=== PATIENT | male | born 1980 | race American Indian/Alaskan Native ===

== ENCOUNTER 2019-10-06 01:07 | Emergency (ER) | payer BC, OTHER ==
[~2019-10-06] VITALS: Ht 180.3 cm; Wt 133.9 kg
--- OUTSIDE RECORDS SUMMARY | ~2019-10-06 | XMS | Encounter Summary ---
Demographics + + + | Address | [address] | | | [place] [address] | + + + | Home Phone | | + + + | Preferred Language | Unknown | + + + | Marital Status | Single | + + + | Druze Affiliation | Unknown | + + + | Race | Unknown | + + + | Ethnic Group | Unknown | + + + Author + + + | Author | [facility] | | | and [place] | + + + | Organization | [facility] | | | and [place] | + + + | Address | Unknown | + + + | Phone | Unavailable | + + + Support + + + + + | Name | Relationship | Address | Phone | + + + + + | Rolf Casas | ECON | [address] | | | | | [place], [place] | | | | | [address] | | + + + + + | Celio Case | ECON | [address] | | | | | [place] | | | | | [address] | | + + + + + Care Team Providers + +------+ + | Care Turn Supervisor Name | Role | Phone | + +------+ + | Trinity Lofton MD | PCP | | + +------+ + Reason for Visit + + + | Reason | Comments | + + + | Wrist Pain | Right wrist pain x 5 months. Presents for EMG. | + + + Encounter Details +--------+ + + + + | Date | Type | Department | Care Team | Description | +--------+ + + + + | 08/04/ | Procedure | [facility] | Joe Reyna MD [address] | CTS (carpal tunnel | | 2013 | visit | [facility] [place] | [facility] [address] | syndrome) (Primary | | | | [address], | [address] [place], | Dx) | | | | [place] [address] [facility] | [place] [address] | | | | | [place] [address] | [phone] | | | | | [phone] | | | +--------+ + + + + Social History + +-------+ +--------+------+ | Tobacco Use | Types | Packs/Day | Years | Date | | | | | Used | | + +-------+ +--------+------+ | Never Smoker | | | | | + +-------+ +--------+------+ + +---+---+ + | Smokeless Tobacco: | | | Quit: | | Former User | | | 05/31/19 | | | | | 09 | + +---+---+ + + + +---------+ + | Alcohol Use | Drinks/Week | oz/Week | Comments | + + +---------+ + | Yes | 5 Standard drinks | 4.2 | | | | or equivalent | | | + + +---------+ + + + + | Sex Assigned at | Date Recorded | | | | + + + | Not on file | | + + + + + + + | Job Start Date | Occupation | Industry | + + + + | Not on file | Not on file | Not on file | + + + + + + + + | Travel History | Travel Start | Travel End | + + + + + + | No recent travel history available. | + + documented as of this encounter Last Filed Vital Signs + + + + + | Vital Sign | Reading | Time Taken | Comments | + + + + + | Blood Pressure | 142/68 | 08/04/2012 9:43 AM | large cuff | | | | PST | | + + + + + | Pulse | 84 | 08/04/2012 9:43 AM | | | | | PST | | + + + + + | Temperature | - | - | | + + + + + | Respiratory Rate | 20 | 08/04/2012 9:43 AM | | | | | PST | | + + + + + | Oxygen Saturation | - | - | | + + + + + | Inhaled Oxygen | - | - | | | Concentration | | | | + + + + + | Weight | 159.2 kg (351 lb) | 08/04/2012 9:43 AM | | | | | PST | | + + + + + | Height | 177.8 cm (5' 10") | 08/04/2012 9:43 AM | | | | | PST | | + + + + + | Body Mass Index | 50.36 | 08/04/2012 9:43 AM | | | | | PST | | + + + + + documented in this encounter Plan of Treatment Not on filedocumented as of this encounter Procedures + +--------+ + + + | Procedure Name | Priori | Date/Time | Associated Diagnosis | Comments | | | ty | | | | + +--------+ + + + | EMG | Routin | 08/04/2012 | CTS (carpal tunnel | Results for this | | | e | 11:39 AM | syndrome) | procedure are in the | | | | PST | | results section. | + +--------+ + + + | EMG | Routin | 08/04/2012 | CTS (carpal tunnel | Results for this | | | e | 11:39 AM | syndrome) | procedure are in the | | | | PST | | results section. | + +--------+ + + + documented in this encounter Results EMG - Linked Chargables (08/04/2012 11:39 AM PST) + + + | Narrative | Performed At | + + + | Joe Reyna MD 08/04/2012 11:39 [facility] | | | GROUP Neurology [address] [place] [address] Phone: | | | Test Date: 08/04/2012 | | | Patient: Rio Casas : 1980 Physician: Joe Reyna M.D. MR #: | | | [id number] Sex: Male Height: 5' 10" HISTORY: 32 year old male | | | presents with right wrist pain for 4 months. The pain is sharp and | | | aching, worsens after activities of the right hand such as throwing | | | basketball, using golf club, or lifting up his 6 year old daughter. | | | He denies numbness or tingling. He had history of right CTS in 1996 | | | confirmed with EMG study. The symptoms at the time were resolved | | | after wearing wrist splint. He started to wear wrist splint again 10 | | | days ago. PHYSICAL EXAM: No tenderness or limited ROM of the | | | right wrist. Scar is seen over the right thenar eminence. Muscle | | | bulk and tone are normal. Muscle strength is normal. Muscle stretch | | | reflexes are 1+ to 2+ and symmetrical in the upper extremities. | | | Sensory exam of the right hand is normal except questionable | | | decreased sensation to pinprick in the right index finger. Tinel | | | | | | s sign is negative at the wrists or elbows. Phalen | | | | | | s sign is negative. Nerve Conduction Studies Motor Summary Table | | | Site NR Onset (ms) Norm Onset (ms) O-P Amp (mV) Norm O-P Amp | | | Full Area (mV ms) Site1 Site2 Delta-0 (ms) Dist (cm) Santiago (m/s) Norm | | | Santiago (m/s) Right Median Motor (Abd Poll Brev) 31 C Wrist | | | 4.1 <4.4 9.7 >4 63.21 Elbow Wrist 4.3 22.5 52 >49 Elbow 8.4 | | | 9.0 57.08 Right Ulnar Motor (Abd Dig Minimi) 31 C | | | Wrist 3.0 <3.3 12.7 >6 66.73 B Elbow Wrist 3.9 22.0 56 >49 B | | | Elbow 6.9 11.5 63.93 A Elbow B Elbow 1.8 11.5 64 >49 A | | | Elbow 8.7 11.3 64.05 Comparison Summary Table | | | Site NR Peak (ms) Norm Peak (ms) P-T Amp ( V) Site1 Site2 | | | Delta-P (ms) Norm Delta (ms) Right Median/Ulnar Dig IV Comparison | | | (Digit 4 - 14cm) 31.4 C Median Wr 4.1 <3.3 23.1 Median Wr | | | Ulnar Wr 0.8 <0.4 Ulnar Wr 3.3 <3.3 25.2 Right | | | Median/Ulnar Palm Comparison (Wrist - 8cm) 31.2 C Median Palm | | | 2.5 <2.5 47.6 Median Palm Ulnar Palm 0.8 <0.3 Ulnar Palm 1.7 | | | <2.5 6.1 F Wave Studies NR F-Lat (ms) Lat Norm (ms) | | | L-R F-Lat (ms) L-R Lat Norm Right Median (Mrkrs) (Abd Poll Brev) | | | 31.2 C 30.70 <33 <2.2 EMG Side Muscle Nerve Root | | | Ins Act Fibs Psw Amp Dur Poly Recrt Int Pat Comment Right Abd Poll | | | Brev Median C8-T1 Nml Nml Nml Nml Nml 0 Nml Nml NCV | | | FINDINGS: Evaluation of the Right median/ulnar (dig IV) sensory | | | comparison study showed prolonged distal peak latency (Median Wr, | | | 4.1 ms) and abnormal peak latency difference (Median Wr-Ulnar Wr, | | | 0.8 ms). The Right median/ulnar (palm) mixed comparison study | | | showed abnormal peak latency difference (Median Palm-Ulnar Palm, 0.8 | | | ms). All remaining nerves (as indicated in the following tables) | | | were within normal limits. All F Wave latencies were within | | | normal limits. EMG FINDINGS: All examined muscles (as | | | indicated in the following table) showed no evidence of electrical | | | instability. IMPRESSION: This is an abnormal study. There is | | | electrodiagnostic evidence of a mild right median neuropathy at the | | | wrist, i.e., carpal tunnel syndrome. Clinical correlation is | | | recommended. Joe Reyna M.D. | | | Cc: Trinity Lofton MD Waveforms: | | + + + + + | Procedure Note | + + | Joe Reyna MD - 08/04/2012 11:32 AM PST Formatting of this note might be different | | [facility] [id number] [place] [address] | | [place] [id number]: Fax: Test Date: 08/04/2012Patient: | | Rio Case : 1980 Physician: Joe Reyna M.D. MR #: [id number] Sex: Male Height: | | 5' 10" HISTORY:32 year old male presents with right wrist pain for 4 months. The pain | | is sharp and aching, worsens after activities of the right hand such as throwing | | basketball, using golf club, or lifting up his 6 year old daughter. He denies numbness | | or tingling. He had history of right CTS in 1996 confirmed with EMG study. The symptoms | | at the time were resolved after wearing wrist splint. He started to wear wrist splint | | again 10 days ago.PHYSICAL EXAM:No tenderness or limited ROM of the right wrist. Scar is | | seen over the right thenar eminence. Muscle bulk and tone are normal. Muscle strength | | is normal. Muscle stretch reflexes are 1+ to 2+ and symmetrical in the upper | | extremities. Sensory exam of the right hand is normal except questionable decreased | | sensation to pinprick in the right index finger. Tinel | | | | s sign is negative at the wrists or elbows. Phalen | | | | s sign is negative.Nerve Conduction StudiesMotor Summary Table Site NR Onset (ms) Norm | | Onset (ms) O-P Amp (mV) Norm O-P Amp Full Area (mV ms) Site1 Site2 Delta-0 (ms) Dist | | (cm) Santiago (m/s) Norm Santiago (m/s) Right Median Motor (Abd Poll Brev) 31 C Wrist 4.1 | | <4.4 9.7 >4 63.21 Elbow Wrist 4.3 22.5 52 >49 Elbow 8.4 9.0 57.08 Right Ulnar | | Motor (Abd Dig Minimi) 31 C Wrist 3.0 <3.3 12.7 >6 66.73 B Elbow Wrist 3.9 22.0 56 | | >49 B Elbow 6.9 11.5 63.93 A Elbow B Elbow 1.8 11.5 64 >49 A Elbow 8.7 11.3 | | 64.05 Comparison Summary Table Site NR Peak (ms) Norm Peak (ms) P-T Amp ( V) | | Site1 Site2 Delta-P (ms) Norm Delta (ms) Right Median/Ulnar Dig IV Comparison (Digit 4 - | | 14cm) 31.4 C Median Wr 4.1 <3.3 23.1 Median Wr Ulnar Wr 0.8 <0.4 Ulnar Wr 3.3 | | <3.3 25.2 Right Median/Ulnar Palm Comparison (Wrist - 8cm) 31.2 C Median Palm | | 2.5 <2.5 47.6 Median Palm Ulnar Palm 0.8 <0.3 Ulnar Palm 1.7 <2.5 6.1 F Wave | | Studies NR F-Lat (ms) Lat Norm (ms) L-R F-Lat (ms) L-R Lat Norm Right Median (Mrkrs) | | (Abd Poll Brev) 31.2 C 30.70 <33 <2.2 EMG Side Muscle Nerve Root Ins Act Fibs Psw | | Amp Dur Poly Recrt Int Pat Comment Right Abd Poll Brev Median C8-T1 Nml Nml Nml Nml Nml | | 0 Nml Nml NCV FINDINGS:Evaluation of the Right median/ulnar (dig IV) sensory comparison | | study showed prolonged distal peak latency (Median Wr, 4.1 ms) and abnormal peak | | latency difference (Median Wr-Ulnar Wr, 0.8 ms). The Right median/ulnar (palm) mixed | | comparison study showed abnormal peak latency difference (Median Palm-Ulnar Palm, 0.8 | | ms). All remaining nerves (as indicated in the following tables) were within normal | | limits. All F Wave latencies were within normal limits. EMG FINDINGS:All examined | | muscles (as indicated in the following table) showed no evidence of electrical | | instability. IMPRESSION:This is an abnormal study. There is electrodiagnostic evidence | | of a mild right median neuropathy at the wrist, i.e., carpal tunnel syndrome.Clinical | | correlation is recommended. Joe Reyna M.D.Cc: Trinity Lofton, | | MDWaveforms: | |F Wave Studies | | | | NR F-Lat (ms) Lat Norm (ms) L-R F-Lat (ms) L-R Lat Norm | |Right Median (Mrkrs) (Abd Poll Brev) 31.2 C | | 30.70 <33 <2.2 | | | |EMG | | | | Side Muscle Nerve Root Ins Act Fibs Psw Amp Dur Poly Recrt Int Pat Comment | |Right Abd Poll Brev Median C8-T1 Nml Nml Nml Nml Nml 0 Nml Nml | | | | | |NCV FINDINGS: | |Evaluation of the Right median/ulnar (dig IV) sensory comparison study showed prolonged dis diamond peak latency (Median Wr, 4.1 ms) and abnormal peak latency difference (Median Wr-Ulnar W r, 0.8 ms). The Right median/ulnar | |(palm) mixed comparison study showed abnormal peak latency difference (Median Palm-Ulnar Pa lm, 0.8 ms). All remaining nerves (as indicated in the following tables) were within normal limits. | | | |All F Wave latencies were within normal limits. | | | |EMG FINDINGS: | |All examined muscles (as indicated in the following table) showed no evidence of electrical instability. | | | |IMPRESSION: | |This is an abnormal study. There is electrodiagnostic evidence of a mild right median neuro moustapha at the wrist, i.e., carpal tunnel syndrome. | |Clinical correlation is recommended. | | | | | | | |Joe Reyna M.D. | | | | | | | |Cc: | |Trinity Lofton MD | | | | | | | | | |Waveforms: | | | | | | | + + documented in this encounter Visit Diagnoses + + | Diagnosis | + + | CTS (carpal tunnel syndrome) - Primary Carpal tunnel syndrome | + + documented in this encounter
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
--- OUTSIDE RECORDS SUMMARY | ~2019-10-06 | XMS | Encounter Summary ---
Demographics + + + | Address | [address] | | | [place] [address] | + + + | Home Phone | | + + + | Preferred Language | Unknown | + + + | Marital Status | Single | + + + | Rastafari Affiliation | Unknown | + + + | Race | Unknown | + + + | Ethnic Group | Unknown | + + + Author + + + | Author | [facility] | | | and [place] | + + + | Organization | [facility] | | | and [place] | + + + | Address | Unknown | + + + | Phone | Unavailable | + + + Support + + + + + | Name | Relationship | Address | Phone | + + + + + | Rolf Casas | ECON | [address] | | | | | [place], [place] | | | | | [address] | | + + + + + | Celio Case | ECON | [address] | | | | | [place], [place] | | | | | [address] | | + + + + + Care Team Providers + +------+ + | Care Hot Box Spotter Name | Role | Phone | + +------+ + PCP | Unavailable | + +------+ + Encounter Details +--------+ + + + + | Date | Type | Department | Care Team | Description | +--------+ + + + + | 08/03/ | Hospital | [facility] | | | | 2001 | Encounter | MED [facility] GENER[facility] | | | | | | CONV DEPT [address] | | | | | | [place], | | | | | | [place] [address] | | | | | | [phone] | | | +--------+ + + + + Social History + +-------+ +--------+------+ | Tobacco Use | Types | Packs/Day | Years | Date | | | | | Used | | + +-------+ +--------+------+ | Never Assessed | | | | | + +-------+ +--------+------+ + + + | Sex Assigned at [...] + + documented as of this encounter Plan of Treatment Not on filedocumented as of this encounter Visit Diagnoses Not on filedocumented in this encounter"
--- OUTSIDE RECORDS SUMMARY | ~2019-10-06 | XMS | Clinical Summary ---
Demographics + + + | Address | [address] | | | [place] [address] | + + + | Home Phone | | + + + | Preferred Language | Unknown | + + + | Marital Status | Single | + + + | Nondenominational Affiliation | Unknown | + + + | Race | Unknown | + + + | Ethnic Group | Unknown | + + + Author + + + | Author | [facility] | | | and [place] | + + + | Organization | [facility] | | | and [place] | + + + | Address | Unknown | + + + | Phone | Unavailable | + + + Support + + + + + | Name | Relationship | Address | Phone | + + + + + | Rolf Casas | ECON | [address] | | | | | [place], [place] | | | | | [address] | | + + + + + | Bkkelly Case | ECON | [address] | | | | | [place] | | | | | [address] | | + + + + + Care Team Providers + +------+ + | Care Net Software Developer Name | Role | Phone | + +------+ + | Pcp, Prov Inactive | PCP | | + +------+ + Allergies No Known Allergies Medications + + + +---------+------+------+-------+ | Medication | Sig | Dispensed | Refills | Star | End | Statu | | | | | | t | Date | s | | | | | | Date | | | + + + +---------+------+------+-------+ | metFORMIN | Take 500 mg by mouth | | 0 | | | Activ | | (GLUCOPHAGE) 500 mg | 2 times daily (with | | | | | e | | tablet | breakfast & | | | | | | | | dinner). Takes 1 tab | | | | | | | | in AM and 1 1/2 at | | | | | | | | night. | | | | | | + + + +---------+------+------+-------+ | glipiZIDE | Take 10 mg by mouth | | 0 | | | Activ | | (GLUCOTROL) 10 MG | 2 times daily | | | | | e | | tablet | (before meals). | | | | | | + + + +---------+------+------+-------+ Active Problems Not on file Family History + + +------+ + | Medical History | Relation | Name | Comments | + + +------+ + | Diabetes | Father | | | + + +------+ + | Hypertension | Father | | | + + +------+ + | Heart disease | Maternal | | | | | Grandfath | | | | | er | | | + + +------+ + + +------+--------+ + | Relation | Name | Status | Comments | + +------+--------+ + | Father | | | | + +------+--------+ + | Maternal Grandfather | | | | + +------+--------+ + Social History + +-------+ +--------+------+ | [...] recent travel history available. | + + Last Filed Vital Signs + + + [...] | | + + + + + Plan of Treatment + + + + + | Health Maintenance | Due Date | Last Done | Comments | + + + + + | Vaccine: | | | | | Dtap/Tdap/Td (1 - | 9 | | | | Tdap) | | | | + + + + + | Vaccine: Influenza | | | | | (Season Ended) | 0 | | | + + + + + Results Not on filefrom Last 3 Months Insurance + +--------+ +--------+ +---------+--------+ | Payer | Benefi | Subscriber | Effect | Phone | Address | Type | | | t Plan | ID | yary | | | | | | / | | Dates | | | | | | Group | | | | | | + +--------+ +--------+ +---------+--------+ | [employer] | HEALTH | [id number] | 11/29/19 | [phone] | | PPO | | | COMP | | 05-Pre | 7 | | | | | PPO | | sent | | | | + +--------+ +--------+ +---------+--------+ | [employer] | IHS | [id number] | | | | Indemn | | SERVICE | YELLOW | | 013-Pr | | | ity | | | HAWK | | esent | | | | + +--------+ +--------+ +---------+--------+ + +--------+ +--------+ + + | Guarantor Name | Accoun | Relation to | Date | Phone | Billing Address | | | t Type | Patient | of | | | | | | | | | | + +--------+ +--------+ + + | Rio Casas | Person | Self | [birth year] | [address] | | | al/Fam | | 1980 | [phone] | [place] [address] | | | sherice | | | 4 (Home) | | | | | | | [phone] | | | | | | | 7 (Work) | | + +--------+ +--------+ + + Advance Directives + + + + + | Type | Date Recorded | Patient | Explanation | | | | Diamond Wheel Molder | | + + + + + | Power of | | | | | Movie Theater Manager | | | | + + + + +
--- OUTSIDE RECORDS SUMMARY | ~2019-10-06 | XMS | Clinical Summary ---
Demographics + + + | Address | [address] | | | [place] [address] | + + + | Home Phone | | + + + | Preferred Language | Unknown | + + + | Marital Status | Single | + + + | Latter-Day Affiliation | Unknown | + + + | Race | Unknown | + + + | Ethnic Group | Unknown | + + + Author + + + | Author | [facility] | | | and [place] | + + + | Organization | [facility] | | | and [place] | + + + | Address | Unknown | + + + | Phone | Unavailable | + + + Support + + + + + | Name | Relationship | Address | Phone | + + + + + | Rolf Casas | ECON | [address] | | | | | [place], [place] | | | | | [address] | | + + + + + | Bkkelly Case | ECON | [address] | | | | | [place] | | | | | [address] | | + + + + + Care Team Providers + +------+ + | Care Easter Bunny Name | Role | Phone | + [...] +--------+ +---------+--------+ | [employer] | HEALTH | [id number] | 11/29/19 | [phone] | | PPO | | | COMP | | 05-Pre | 7 | | | | | PPO | | sent | | | | + +--------+ +--------+ +---------+--------+ | [facility] | IHS | [id number] | | | | Indemn | | [...] Person | Self | [birth year] | | [address] | | | al/Fam | | 1980 | [phone] | [place] [address] | | | sherice | | | 4 (Home) | | | | | | | [phone] | | | | | | | 7 (Work) | | + +--------+ +--------+ + + Advance Directives + + + + + | Type | Date Recorded | Patient | Explanation | | | | Rn Stars | | + + + + + | Power of | | | | | Toeing Stockings | | | | + + + + +
--- OUTSIDE RECORDS SUMMARY | ~2019-10-06 | XMS | Encounter Summary ---
Demographics + + + | Address | [address] | | | [place] [address] | + + + | Home Phone | | + + + | Preferred Language | Unknown | + + + | Marital Status | Single | + + + | Taoism Affiliation | Unknown | + + + | Race | Unknown | + + + | Ethnic Group | Unknown | + + + Author + + + | Author | [facility] | | | and [place] | + + + | Organization | [facility] | | | and [place] | + + + | Address | Unknown | + + + | Phone | Unavailable | + + + Support + + + + + | Name | Relationship | Address | Phone | + + + + + | Rolf Casas | ECON | [address] | | | | | [place], [place] | | | | | [address] | | + + + + + | Celio Case | ECON | [address] | | | | | [place], [place] | | | | | [address] | | + + + + + Care Team Providers + +------+ + | Care Helicopter Engineer Name | Role | Phone | + +------+ + PCP | Unavailable | + +------+ + Encounter Details +--------+ + + + + | Date | Type | Department | Care Team | Description | +--------+ + + + + | 08/03/ | Hospital | [facility] | | | | 2001 | Encounter | [facility] | | | | | | CONV DEPT [address] | | | | | | [place], | | | | | | [place] [address] | | | | | | [phone] | | | +--------+ + + + [...]
--- OUTSIDE RECORDS SUMMARY | ~2019-10-06 | XMS | Encounter Summary ---
Demographics + + + | Address | [address] | | | [place] [address] | + + + | Home Phone | | + + + | Preferred Language | Unknown | + + + | Marital Status | Single | + + + | Latter-Day Affiliation | Unknown | + + + | Race | Unknown | + + + | Ethnic Group | Unknown | + + + Author + + + | Author | [facility] | | | and [place] | + + + | Organization | [facility] | | | and [place] | + + + | Address | Unknown | + + + | Phone | Unavailable | + + + Support + + + + + | Name | Relationship | Address | Phone | + + + + + | Rolf Casas | ECON | [address] | | | | | [place], [place] | | | | | [address] | | + + + + + | Celio Case | ECON | [address] | | | | | [place] | | | | | [address] | | + + + + + Care Team Providers + +------+ + | Care Beamster Name | Role | Phone | + [...] + | 08/04/ | Procedure | [facility] | Joe Reyna MD [address] | CTS (carpal tunnel | | 2013 | visit | NEUROLOGY CHANCELLOR | [facility] [address] | syndrome) (Primary | | | | [address] [facility], | [address] [place], | Dx) | | | | [place] [address] [facility] | [place] [address] | | | | | [place] [address] | [phone] | | | | | [phone] | | | +--------+ + + + [...] + | Joe Reyna MD 08/04/2012 11:39 [facility] | | | GROUP Neurology [address] [place] [address] Phone: | | | Test Date: 08/04/2012 | | | Patient: Rio Casas : 1980 Physician: Joe Reyna M.D. MR #: | | | [id number] Sex: Male Height: 5' 10" HISTORY: 32 [...] might be different | | [facility] the [facility] GTPWSKztpxcy[address] [place] [address] | | [place] [address]Mjrmv: Fax: Test Date: 08/04/2012Patient: | | Rio Case : 1980 Physician: Joe Reyna M.D. MR #: [id number] Sex: Male Height: | | 5' 10" [...]
--- OUTSIDE RECORDS SUMMARY | ~2019-10-06 | XMS | Encounter Summary ---
Demographics + + + | Address | [address] | | | [place] [address] | + + + | Home Phone | | + + + | Preferred Language | Unknown | + + + | Marital Status | Single | + + + | Anabaptist Affiliation | Unknown | + + + | Race | Unknown | + + + | Ethnic Group | Unknown | + + + Author + + + | Author | [facility] | | | and [place] | + + + | Organization | [facility] | | | and [place] | + + + | Address | Unknown | + + + | Phone | Unavailable | + + + Support + + + + + | Name | Relationship | Address | Phone | + + + + + | Rolf Casas | ECON | [address] | | | | | [place], [place] | | | | | [address] | | + + + + + | Celio Case | ECON | [address] | | | | | [place], [place] | | | | | [address] | | + + + + + Care Team Providers + +------+ + | Care Wraparound Facilitator Name | Role | Phone | + +------+ + | Trinity Lofton MD | PCP | | + +------+ + Encounter Details +--------+ + + + + | Date | Type | Department | Care Team | Description | +--------+ + + + + | 06/19/ | Hospital | [facility] | Alexa Garcia | | | 2013 | Encounter | [facility] | DO Mauro Jordna | | | | | CENTER [address] | [address] [place], [place] | | | | | [place], [place] | [address] | | | | | [address] | | | | | | [phone] | Clovis Crane, | | | | | | MD [address] | | | | | | [facility] | | | | | | [place] [address] | | | | | | [phone] | | | | | | | [...] Performed At | + + + | [facility] | [place] | | Department [address] [facility] | [facility] | | [ rep [address]] [ rep [facility] | | st zip] Signed | - IMAGING | | | | | Patient Name: SONA CASAS Physician: | | | BROW. : 1980 Age: 33 Sex: M Unit #: [id number] | | | Exam Date: 06/19/13 Location: ER | | | Report #: [id number] Page: | | | %(RAD)RES..mtdd.print.filter("pg") of %(RAD) | | | RES..mtdd.print.filter("tpg") | | | | | | Accession Number: [id number] | | | RIGHT LOWER EXTREMITY DUPLEX [...] WERE COMMUNICATED TO DR. CRANE BY THE SUPERVISOR FISH HATCHERY PERFORMING | | | THE STUDY ON 06/19/2013 AT 1800 HOURS. Dictated | | | Date/Time: 06/20/2013 08:02 Transcribed Date/Time: 06/20/2013 | | | 08:09 Qlikview Developer: | | | <<Signature on File>> | | | Kane Velasquez | | | MD Casimiro06/20/13 1426 <Electronically signed by Kane Kirkpatrick MD> | | | Kane Kirkpatrick MD 06/20/13 0802 Qlikview Developer: | | | ProductGramx Drzrhijccckwo42/21/14 0809 | | + + + + + + + + | Performing | Address | City/State/Zipcode | Phone Number | | Organization | | | | + + + + + | [facility] | [address] | [place] | [phone] | | [facility] | | [address] | | | - IMAGING | | [...] | Result | EPITHELIAL CELLS/HPFNO | | [facility] | | | | ORGANISMS SEEN [...] [address] | [place] | [phone] | | [facility] | | [address] | | | - LABORATORY | | | | + + + + + | [facility] | [address] | [place] | | | [facility] | | [address] | | | - LABORATORY | [...] | | | | | | [facility] | | | | | | MEDICAL [...] | | Eosinophils | | | [facility] | | | | | | MEDICAL [...] + | [facility] | [address] | [place], [place] | [phone] | | [facility] | | [address] | | | - LABORATORY | | | | + + + + + | [facility] | [address] | [place], [place] | | | [facility] | | [address], [facility] | | | - LABORATORY | [...] [address] | [place] | [phone] | | [facility] | | [address] | | | - LABORATORY | | | | + + + + + | [facility] | [address] | [place] | | | [facility] | | [address], [facility] | | | - LABORATORY | [...] | 0.71 | 0.60 - 1.30 | [facility] | | | | | mg/dL | [...] + | [facility] | [address] | [place], [place] | [phone] | | [facility] | | [address] | | | - LABORATORY | | | | + + + + + | [facility] | [address] | [place] | | | [facility] | | [id number] [place] [address] | | | - LABORATORY | | [...] + | [facility] | [address] | [place] | [phone] | | [facility] | | [address] | | | - LABORATORY | | | | + + + + + | [facility] | [address] | [place] | | | [facility] | | [id number] [place] [address] | | | - LABORATORY | | | | + + + + + documented in this encounter Visit Diagnoses Not on filedocumented in this encounter
[~2019-10-06 01:07] MED LIST: ASPIRIN EC81 MG PO; COLACE100 MG PO; DIABETIC MED; FISH OIL 1,0001 EAC6 PO; LANTUS SOL100 UNIT/1 SUB-Q; LISINOPRIL10 MG PO; METFORMIN HCL500 MG PO; MIRALAX17 GM PO; MULTI VITAMIN1 EACH PO; NOVOLOG FL100 UNIT/1 SUB-Q
== END 2019-10-06 02:03 | disposition home or self-care (01) ==
LOC: ED 01:07
DX: S81.011A Laceration without foreign body, right knee, initial encounter (principal); Z79.899 Other long term (current) drug therapy; W01.0XXA Fall on same level from slipping, tripping and stumbling without subsequent striking against object, initial encounter
CPT/HCPCS: 12001; 90471; 90715; 99283-25

== ENCOUNTER 2020-09-04 16:04 | Emergency (ER) | payer BC, OTHER ==
[~2020-09-04] VITALS: Ht 175.3 cm; Wt 142.9 kg
[2020-09-04] MEDS ORDERED: LANTUS SOL100 UNIT/1 SUB-Q (16:27)
[2020-09-04] MEDS ORDERED: PREGABALIN75 MG PO (16:28)
[2020-09-04] MEDS ORDERED: METFORMIN HCL500 M1 PO (16:28)
[2020-09-04] MEDS ORDERED: GLIPIZIDE10 MG PO (16:28)
[2020-09-04] MEDS ORDERED: ROSUVASTATIN CA20 MG PO (16:29)
[2020-09-04] MEDS ORDERED: LEVOTHYROXINE25 MCG PO (16:29)
--- NOTE | 2020-09-04 19:42 | EKG ---
[facility] [address] [facility] [place], [place] [address] Signed Sinus tachycardia Otherwise normal ECG No previous ECGs available Confirmed by JENN JOHNSON MD ([id number]) on 09/04/2020 7:42:13 PM Electronically Signed By: JENN JOHNSON MD 09/04/201941 PATIENT NAME: CASESONA Electrocardiogram DATE OF : [birth year] PHYSICIAN: JENN JOHNSON MD REPORT #: [id number] REPORT IS CONFIDENTIAL AND NOT TO BE RELEASED WITHOUT AUTHORIZATION
== END 2020-09-04 23:40 | disposition home or self-care (01) ==
LOC: ED 16:04
DX: R00.0 Tachycardia, unspecified (principal); E83.42 Hypomagnesemia; R60.0 Localized edema; R19.7 Diarrhea, unspecified; E11.9 Type 2 diabetes mellitus without complications; I10 Essential (primary) hypertension; Z79.899 Other long term (current) drug therapy; Z79.82 Long term (current) use of aspirin; Z79.4 Long term (current) use of insulin
CPT/HCPCS: 80053; 81001; 83690; 83735; 83880; 84484; 85025; 93005; 93010; 96365; 96366; 96367; 96375; 99285-25; J2060; J3411; J3475; J7030; J7121

== ENCOUNTER 2021-09-11 14:45 | Emergency (ER) | payer OTHER, BC ==
[~2021-09-11] VITALS: Ht 175.3 cm; Wt 152.0 kg
[~2021-09-11 14:45] MED LIST changes: +GLIPIZIDE10 MG PO; +LEVOTHYROXINE25 MCG PO; +METFORMIN HCL500 M1 PO; +PREGABALIN75 MG PO; +ROSUVASTATIN CA20 MG PO
[2021-09-11] MEDS ORDERED: FUROSEMIDE40 MG PO (15:35)
[2021-09-11] MEDS ORDERED: POTASSIUM CHLO10 ME1 PO (15:36)
[2021-09-11] MEDS ORDERED: LISINOPRIL40 MG PO (15:36)
== END 2021-09-11 17:25 | disposition home or self-care (01) ==
LOC: ED 14:45
DX: S01.111A Laceration without foreign body of right eyelid and periocular area, initial encounter (principal); W19.XXXA Unspecified fall, initial encounter; W22.8XXA Striking against or struck by other objects, initial encounter; Y92.89 Other specified places as the place of occurrence of the external cause; E11.9 Type 2 diabetes mellitus without complications; I10 Essential (primary) hypertension; Z79.899 Other long term (current) drug therapy; Z79.84 Long term (current) use of oral hypoglycemic drugs; Z88.8 Allergy status to other drugs, medicaments and biological substances
CPT/HCPCS: 99282

== ENCOUNTER 2021-10-17 16:02 | Emergency (ER) | payer BC, OTHER ==
[~2021-10-17] VITALS: Ht 175.3 cm; Wt 150.6 kg
[~2021-10-17 16:02] MED LIST changes: +FUROSEMIDE40 MG PO; +LISINOPRIL40 MG PO; +POTASSIUM CHLO10 ME1 PO
[2021-10-18] MEDS ORDERED: DOXYCYCLINE HY100 MG PO (00:38)
== END 2021-10-18 03:15 | disposition home or self-care (01) ==
LOC: ED 16:02
DX: L03.116 Cellulitis of left lower limb (principal); I10 Essential (primary) hypertension; E11.9 Type 2 diabetes mellitus without complications; Z88.8 Allergy status to other drugs, medicaments and biological substances; Z79.84 Long term (current) use of oral hypoglycemic drugs; Z79.899 Other long term (current) drug therapy
CPT/HCPCS: 36415; 73630; 80053; 83605; 85025; 85610; 85730; 90471; 90714; 96365; 96366; 99283-25; A9270; J3370; J7030; J7060

== ENCOUNTER 2023-06-16 13:24 | Emergency (ER) | payer OTHER ==
[~2023-06-16] VITALS: Ht 175.3 cm; Wt 0.0 kg
[~2023-06-16 13:24] MED LIST changes: +CRUTCHES XX; +DOXYCYCLINE HY100 MG PO
[2023-06-16 14:25] LABS: BILIRUBIN, URINE NEGATIVE (negative); BLOOD/HGB, URINE SMALL (Negative); KETONE, URINE NEGATIVE (Negative); LEUK ESTERASE, URINE SMALL (negative); NITRITE, URINE NEGATIVE (negative)
[2023-06-16 14:33] LABS: BACTERIA, URINE RARE /hpf (negative); CASTS, URINE NONE SEEN \\lpf; COLLECTION TYPE, URINE CLEAN CATCH; CRYSTALS, URINE NONE SEEN (0-1+); EPITHELIAL CELLS, URINE TRANSITIONAL 1+ /lpf (0-1+); REFLEX CULTURE, URINE Yes (No)
[2023-06-16] MEDS ORDERED: KETOCONAZOLE15 GM TOP (15:28)
[2023-06-16] MEDS ORDERED: DIFLUCAN200 MG PO (15:28)
[2023-06-16 15:38] VITALS: BP 121/64
== END 2023-06-16 15:37 | disposition home or self-care (01) ==
LOC: ED 13:24
PROVIDERS: Emergency Medicine
DX: N48.1 Balanitis (principal); E11.9 Type 2 diabetes mellitus without complications; I10 Essential (primary) hypertension; Z79.82 Long term (current) use of aspirin; Z79.890 Hormone replacement therapy; Z79.899 Other long term (current) drug therapy
CPT/HCPCS: 81001; 87088; 99283

== ENCOUNTER 2024-06-14 02:30 | Emergency (ER) | payer OTHER ==
[~2024-06-14] VITALS: Ht 175.3 cm; Wt 163.7 kg
[~2024-06-14 02:30] MED LIST changes: +AMOX TR-K CLV1 EAC1 PO; +CLINDAMYCIN HC150 MG PO; +DIFLUCAN200 MG PO; +HYDROCODON-ACE1 EA11 PO; +KETOCONAZOLE15 GM TOP; +PERCOCET 5-3251 EACH PO
[2024-06-14] MEDS ORDERED: OZEMPIC0.25 MG/02 SQ (02:39)
[2024-06-14] MEDS ORDERED: MAGNESIUM400 M1 PO (02:40)
[2024-06-14 02:56] LABS: HEMATOCRIT 38.3 % (35.0-50.0); HEMOGLOBIN 12.7 g/dL (12.0-18.0); MCH 31.4 (27-36); MCHC 33.3 g/dl (30-36); MCV 94.6 fl (81-99); PLATELET COUNT 216 K/uL (140-440); RBC 4.05 M/ul (4.3-5.7); RDW 14.2 (10.5-15.0)
[2024-06-14 03:05] LABS: INR 1.05 (0.80-1.30); PROTIME 13.6 Sec (11.2-14.2)
[2024-06-14 03:07] LABS: PARTIAL THROMBOPLASTIN TIME 27.2 Sec (22.9-41.3)
[2024-06-14 03:08] LABS: BANDS, MANUAL DIFF 1; BASOPHILS, MANUAL DIFF 1; EOSINOPHILS, MANUAL DIFF 5; LYMPHOCYTES, MANUAL DIFF 33; MONOCYTES, MANUAL DIFF 6; NEUTROPHILS, MANUAL DIFF 54
[2024-06-14 03:10] LABS: ALBUMIN 3.5 g/dL (3.4-5.0); ALBUMIN/GLOBULIN RATIO 0.88 (1.1-2.4); ALKALINE PHOSPHATASE 154 U/L (46-116); ALT (SGPT) 61 U/L (14-59); ANION GAP 11.6 (7-21); AST (SGOT) 75 U/L (15-37); BILIRUBIN, TOTAL 0.5 ng/dL (0.2-1.0); BUN/CREATININE RATIO 9.48 (6.0-28.6); CALCIUM 9.4 mg/dL (8.5-10.1); CARBON DIOXIDE 31 mmol/L (21-32); CHLORIDE 96 mmol/L (98-107); CREATININE, SERUM 1.16 mg/dL (0.70-1.30); GLOMERULAR FILTRATION RATE,EST 79 mL/min (>60); POTASSIUM 4.6 mmol/L (3.5-5.1); PROTEIN, TOTAL 7.5 g/dL (6.4-8.2); SALICYLATE 1.6 mg/dL (2.8-20.0); UREA NITROGEN 11 mg/dL (7-18)
[2024-06-14] MEDS ORDERED: PERIDEX473 M1 MM (03:19)
[2024-06-14 03:26] VITALS: BP 167/76
== END 2024-06-14 03:25 | disposition home or self-care (01) ==
LOC: ED 02:30
PROVIDERS: Internal Medicine
DX: K05.10 Chronic gingivitis, plaque induced (principal); E11.9 Type 2 diabetes mellitus without complications; I10 Essential (primary) hypertension; Z79.84 Long term (current) use of oral hypoglycemic drugs; Z79.890 Hormone replacement therapy; Z79.85 Long-term (current) use of injectable non-insulin antidiabetic drugs; Z79.82 Long term (current) use of aspirin; Z79.899 Other long term (current) drug therapy
CPT/HCPCS: 36415; 80053; 85025; 85610; 85730; 99283; G0480

== ENCOUNTER 2025-03-06 11:05 | Day surgery (SDC) | payer MEDICARE, OTHER ==
[~2025-03-06] VITALS: Ht 175.3 cm; Wt 153.0 kg
[~2025-03-06 11:05] MED LIST changes: +HYDROCHLOROTHIA25 MG PO; +IBLOOD GLUCOSE TEST STRIP 1 EA TEST VI PRN; +LACTATED RINGER'S 1,000 ML IV SCH; +LIDOCAINE HCL 1% 5 ML SDV INJ ONE; +MAGNESIUM400 M1 PO; +MIDAZOLAM HCL 5 MG/5 ML VIAL IV PRN; +OZEMPIC0.25 MG/02 SQ; +PERIDEX473 M1 MM; +fentaNYL citrate 100 MCG/2 ML VIAL IV PRN
[2025-03-06 11:23] VITALS: BP 132/74
[2025-03-06] MEDS ORDERED: VITAMIN D210 MCG PO (11:27)
[2025-03-06] MEDS ORDERED: VITAMIN B12500 MCG PO (11:27)
[2025-03-06] MEDS ORDERED: LIDOCAINE HCL 2% 5 ML SDV ONE (11:48)
[2025-03-06] MEDS ORDERED: fentaNYL citrate 100 MCG/2 ML VIAL ONE (11:49)
--- NOTE | 2025-03-06 12:15 | NUR ---
03/06/25 1215 Grisel Smith 1212-PATIENT ARRIVED TO PACU ON 2L NC RR EVEN PATIENT AWAKE DENIES PAIN OR NAUSEA. ABDOMEN SOFT. IVF INFUSING. SR HR 80'S. ORIENTED TO PACU.
[2025-03-06 12:39] VITALS: BP 165/90
--- NOTE | 2025-03-07 09:34 | OR ---
[facility] [address] [place], [place] [address] Signed DATE OF OPERATION: 03/06/2025 SURGEON: Clinton Browning MD PREOPERATIVE DIAGNOSES: 1. Morbid obesity, anticipating bariatric operation. 2. Low-grade anemia (hematocrit 36). POSTOPERATIVE DIAGNOSIS: Mild antral gastritis otherwise essentially normal. PROCEDURE: Esophagogastroduodenoscopy with biopsy. ANESTHESIA: Propofol infusion; Juan Diego Malave CRNA. INDICATIONS: 44-year-old man is a patient of Dr. Nadira Aparicio at [facility] and is anticipating bariatric surgery elsewhere. He was recommended to have upper endoscopy to affirm there were no lesions that would contradict bariatric operation. He is considered to have low-grade anemia with hematocrit of 36, but had no hematemesis, blood per rectum, or other problem. He denies any epigastric pain particularly and has only mild reflux symptoms episodically. He is now admitted to undergo upper endoscopy. He understands the risk of bleeding, infection, and perforation. FINDINGS: Esophagus showed a linear ulcerated area with mild inflammation to be sure. There was a poor flap valve, but no sign of large hiatal hernia. Stomach is largely normal, though there was some mild antral gastritis. The duodenum was normal. PROCEDURE IN DETAIL: The patient was brought to the endoscopy suite and placed in lateral decubitus position, given lidocaine hypopharyngeal anesthesia. He was given intravenous sedation with propofol infusional technique by the linen attendant. A bite block was placed. Olympus upper endoscope was passed in the hypopharynx. Vocal cords were visualized as normal. Scope was advanced to the esophagus, throughout its length it was normal except in the distal portion where there were two linear areas of esophageal inflammation. There was no evidence of Myrick's epithelium. Scope was passed to the stomach which was insufflated with air. Rugal folds were normal. There was mild antral gastritis. The Electronically Signed By: CLINTON BROWNING MD 03/07/25 0934 PATIENT NAME: CASE,SONA PARKINSON OPERATIVE REPORT DATE OF : [birth year] REPORT #: [id number] PHYSICIAN: CLINTON BROWNING MD PCP: NADIRA APARICIO MD REPORT IS CONFIDENTIAL AND NOT TO BE RELEASED WITHOUT AUTHORIZATION [facility] [address] [place], [place] [address] Signed scope was passed through the pylorus into the duodenum, which was normal. Biopsies were taken of duodenum and subsequently the antrum. CLOtest biopsies were also obtained negative at 20 minutes postprocedure. Retroflexed view was undertaken showing somewhat effaced flap valve but no sign of large hiatal hernia proper. Further withdrawal after biopsy of the distal esophagus as well. Scope was carefully withdrawn. The remaining esophagus appeared normal. CONCLUDING DIAGNOSIS: Mild antral gastritis and poor flap valve with minimal distal esophagitis; no contraindication to bariatric operation noted. PLAN: To proceed with bariatric operation as planned. Consideration is made for Prilosec 20 mg daily, given his inflammatory change of the esophagus and antrum. He will return to the ongoing care of Dr. Nadira Aparciio of [facility]. MD AV Camara/MODL /[id number] cc: Dr. Apraicio Copies: ~ Electronically Signed By: CLINTON BROWNING MD 03/07/25 0934 PATIENT NAME: CASESONA OPERATIVE REPORT DATE OF : [birth year] REPORT #: [id number] PHYSICIAN: CLINTON BROWNING MD PCP: NADIRA APARICIO MD REPORT IS CONFIDENTIAL AND NOT TO BE RELEASED WITHOUT AUTHORIZATION
--- NOTE | 2025-03-12 11:10 | PATH ---
[facility] [address] [place], [place] [address] Signed SPECIMEN(S): A DUODENAL BIOPSY SPECIMEN(S): B ANTRUM BIOPSY SPECIMEN(S): C DISTAL ESOPHAGEAL BIOPSY SPECIMEN SOURCE: A. DUODENAL BIOPSY B. ANTRUM BIOPSY C. DISTAL ESOPHAGEAL BIOPSY CLINICAL HISTORY: Low-grade anemia, significant obesity (morbid), diabetes mellitus, antral gastritis FINAL PATHOLOGIC DIAGNOSIS: A. Duodenum, biopsy: - Benign duodenal mucosa with mild villous blunting without significant increased inflammation. - No ulcer, dysplasia, or neoplasm identified. B. Antrum stomach, biopsy: - Chronic gastritis. - Negative for Helicobacter organisms by immunohistochemistry stain. - No ulcer, dysplasia, or intestinal metaplasia identified. C. Distal esophagus, biopsy: - Mild superficial acute esophagitis. - Negative for fungal organisms by PAS/D stain - No intramucosal eosinophils identified. - No dysplasia, intestinal metaplasia, or neoplasm identified. [facility] MICROSCOPIC EXAMINATION: Histologic sections of all submitted blocks are examined by light microscopy. These findings, together with the gross examination, support the pathologic diagnosis. GROSS DESCRIPTION: A. The specimen, labeled and designated "Case, duodenal biopsy," is received in formalin and consists of two galindo soft tissue fragments, ranging from 0.2-0.3 cm. Entirely submitted in (A1). B. The specimen, labeled and designated "Case, antrum biopsy," is received in formalin and consists of two galindo soft tissue fragments, ranging from 0.2-0.4 cm. Entirely submitted in (B1). PATIENT NAME: CASE,SONA ANDREW RECORD #: [id number] PATHOLOGY DATE OF : [birth year] REPORT #: [id number] PHYSICIAN: CORNELIUS LERNER PCP: NADIRA GANN MD REPORT IS CONFIDENTIAL AND NOT TO BE RELEASED WITHOUT AUTHORIZATION [facility] [address] [place], [place] [address] Signed C. The specimen, labeled and designated "Case, distal esophageal biopsy," is received in formalin and consists of four galindo soft tissue fragments, ranging from 0.3-0.4 cm. Entirely submitted in (C1). VB (under the direct supervision of a pathologist) The Gross Description was prepared using a voice recognition system. The report was reviewed for accuracy; however, sound-alike word errors, addition and/or deletions may occur. If there is any question about this report, please contact Client Services. ADDITIONAL NOTES: Immunohistochemical and/or in situ hybridization studies if performed in this case included appropriate positive controls that reacted as expected. This test was developed and its performance characteristics determined by [facility]. It has not been cleared or approved by the U.S. Food and Drug Administration. The FDA has determined that such clearance or approval is not necessary. This test is used for clinical purposes. It should not be regarded as investigational or for research. [facility] is certified under the Clinical Laboratory Improvement Amendments of 1988 (CLIA) as qualified to perform high complexity clinical laboratory testing. PERFORMING LABORATORY: Technical component was performed by [facility], [address] [place] [id number] (CLIA# [id number]). Professional interpretation was performed by [facility], [address] [place] [id number] (CLIA#: [id number]). Diagnostician: Federico Rodrigues MD Pathologist Electronically Signed 03/12/2025 Copies: ~ PATIENT NAME: CASE,SONA PARKINSON PATHOLOGY DATE OF : [birth year] REPORT #: [id number] PHYSICIAN: CORNELIUS PATHOLOGY PCP: NADIRA GANN MD REPORT IS CONFIDENTIAL AND NOT TO BE RELEASED WITHOUT AUTHORIZATION
== END 2025-03-06 12:50 | disposition home or self-care (01) ==
LOC: OPS 11:05 → DS 11:05 → OPS 12:00
PROVIDERS: ATTEND Surgery
PROC: 0DB68ZX Excision of Stomach, Via Natural or Artificial Opening Endoscopic, Diagnostic (ICD-10-PCS; 2025-03-06)
PROC: 0DB38ZX Excision of Lower Esophagus, Via Natural or Artificial Opening Endoscopic, Diagnostic (ICD-10-PCS; 2025-03-06)
PROC: 0DB98ZX Excision of Duodenum, Via Natural or Artificial Opening Endoscopic, Diagnostic (ICD-10-PCS; principal; 2025-03-06 12:00)
DX: K29.50 Unspecified chronic gastritis without bleeding (principal); K20.80 Other esophagitis without bleeding; D64.9 Anemia, unspecified; E11.9 Type 2 diabetes mellitus without complications; I10 Essential (primary) hypertension; E66.01 Morbid (severe) obesity due to excess calories; Z68.42 Body mass index [BMI] 45.0-49.9, adult
CPT/HCPCS: 00731; 88305; 88312; 88342; J2003; J2704; J3010; J7121